=== PATIENT | female | born 1960 | race Caucasian/White ===

== ENCOUNTER → 2017-01-31 | Outpatient (CLI) | payer BC | LOC: US 01-30 10:30 | DX: N64.89 Other specified disorders of breast (principal) | CPT/HCPCS: 76641-RT ==

== ENCOUNTER → 2021-03-22 | Outpatient (CLI) | payer BC ==
[~2021-03-22] MED LIST: CALCIUM+VIT D PO; CLOBETASOL CREAM TD; FAMOTIDINE20 MG PO; KRILL OIL PO; MULTIVITAMIN1 EACH PO; OMEGA PO; PROBIOTIC1 EAC1 PO; VITAMIN D PO; [UNRECOGNIZED DRUG - OTHER] PO
[2021-03-22 09:28] LABS: BUN/CREATININE RATIO 17 (0-10)
== END ==
LOC: LAB 08:25
PROVIDERS: Nurse Practitioner Family
DX: M25.561 Pain in right knee (principal); M81.0 Age-related osteoporosis without current pathological fracture; E78.5 Hyperlipidemia, unspecified
CPT/HCPCS: 36415; 73562; 80053; 80061

== ENCOUNTER → 2022-02-20 | Outpatient (CLI) | payer BC ==
[2022-02-20 08:09] LABS: BUN/CREATININE RATIO 17 (0-10)
== END ==
LOC: LAB 07:12
PROVIDERS: Nurse Practitioner Family
DX: E78.5 Hyperlipidemia, unspecified (principal)
CPT/HCPCS: 36415; 80053; 80061

== ENCOUNTER → 2022-08-15 | Outpatient (CLI) | payer BC | LOC: RAD 07:26 | DX: R22.30 Localized swelling, mass and lump, unspecified upper limb (principal); M25.50 Pain in unspecified joint | CPT/HCPCS: 73130; 73562; 73630 ==